=== PATIENT | male | born 1950 | race Caucasian/White ===

== ENCOUNTER 2020-12-01 20:18 | Emergency (ER) | payer OTHER ==
[~2020-12-01] VITALS: Ht 172.7 cm; Wt 61.2 kg
--- NOTE | ~2020-12-01 | EMS ---
[address] [address] EMS Patient Care Report Name: ADALID ARDON Room #: DEP JOSE CARLOS Mayo#: [id number] Admission: 12/01/20 Attend Phys: Discharge: 12/01/20 Date of : 48 Report #: [id number] THIS REPORT FOR: //name// Report Transmitted: 12/02/2020 07:43 EMS Care Summary [place], [place]/[facility] Incident [id number] @ 12/01/2020 19:37 Incident Location [address] [place], [place] [id number] Patient ADALID ARDON Male, 70 Years 1950 Patient Address Patient History Hypotension, Patient Allergies No known allergies, Patient Medications Simvastatin, Chief Complaint HYPOTENSION Disposition Transported [place] Dispatch Reason Sick Person Transported To [place] [facility] Narrative M41 DISPATCHED TO A SICK PERSON. M41 AOS AND FOUND A MALE PT SITTING AT THE DINNER TABLE. THE PT WAS CAOX4 ANSWERING ALL QUESTIONS CORRECTLY. THE PT WAS OVER AT A FRIENDS HOUSE EATING DINNER WHEN HE LOST CONSCIOUSNESS FOR ABOUT 5 MINUTES. INDIVIDUALS ON SCENE STATE THAT HE DID NOT HAVE ANY SEIZURE ACTIVITY AND THAT HE JUST PASSED OUT AND [address] [address] EMS Patient Care Report Name: ADALID ARDON Room #: DEP AlecLizzie#: [id number] Admission: 12/01/20 Attend Phys: Discharge: 12/01/20 Date of : 48 Report #: [id number] THEY WERE UNABLE TO AROUSE HIM. THE PT STATES THAT HE DOES HAVE HX OF HYPOTENSION AND NOTHING ELSE. PT DENIES ALLERGIES AND TAKES SIMVASTATIN. THE PT STATES THAT HE DOES NOT WISH TO RECIEVE ANY TREATMENT BUT DOES ALLOW US TO TAKE HIS VITAL SIGNS. PTS VITALS OBTAINED WHICH SHOWED THE PT WAS HYPOTENSIVE. THE PT IS STILL REFUSING TREATMENT EVEN AFTER I TOLD HIM ALL THINGS POSSIBLE LEADING UP TO AND HE STILL REFUSED. I CALLED [facility]ICAL CONTR[facility] AND ADVISED THEM OF THE SITUATION AND THEY STATED THAT THEY BELIEVE THAT WITH HIS CURRENT BLOOD PRESSURE EVEN THOUGH HE IS AOX4 THAT HE IS NOT CAPABLE OF MAKING SOUND DECISIONS AND THAT THE PT SHOULD BE TRANSPORTED TO [facility]. THE PT AT THIS TIME PASSED OUT RIGHT AFTER I RECIEVED REPORT FROM LILIANA. THE PT WAS MOVED TO THE COT. IN THE AMBULANCE VITALS OBTAINED. IV ACCESS OBTAINED. PT GIVEN 500ML NS IV. PT BP IMPROVED. M[address] [facility]. EN ROUTE PT CONDTION IMPROVED. REPORT GIVEN TO RN [facility]. SIGNATURES OBTAINED. TRANSFER OF CARE TOOK PLACE. M41 IN SERVICE. CURTIS BONILLA DIRECT[employer] Initial Vitals @20:09P: 40, @20:07P: 51,SpO2: 93, @19:58P: 49,SpO2: 96, @19:58P: 55,CO: 1,SpO2: 97, @20:11P: 58,BP: 81/55,SpO2: 97, @20:13P: 61, @20:10P: 57,BP: 87/50,CO: 1,SpO2: 98, @19:48P: 60,BP: 55/41,SpO2: 91, @19:46P: 71,R: 18,BP: 66/35,Pain: 0/10,GCS: 15,Glucose: 111,SpO2: 99,Revised Trauma: 10, @20:15P: 65,R: 18,BP: 100/66,GCS: 15,SpO2: 98,Revised Trauma: 12,HI Suspected: false Assessments @19:46MENTAL:Person Oriented,Time Oriented,Event Oriented,Place Oriented,SKIN:Diaphoresis,Cold,Pale,HEENT:Head/Face: No [facility] [address] [place] [address] EMS Patient Care Report Name: ADALID ARDON Shari Room #: DEP Maria Esther#: [id number] Admission: 12/01/20 Attend Phys: Discharge: 12/01/20 Date of : 48 Report #: [id number] Abnormalities,Neck/Airway: No Abnormalities,LUNG SOUNDS:General: No Abnormalities,ABDOMEN:General: No Abnormalities,PELVIS//GI:No Abnormalities,EXTREMITIES:Capillary Refill: Right Upper: < 2 Sec,Left Arm: No Abnormalities,Right Arm: No Abnormalities,Left Leg: No Abnormalities,Right Leg: No Abnormalities,PULSE:Radial: 1+ Thready,NEURO:No Abnormalities,@20:15MENTAL:Person Oriented,Time Oriented,Place Oriented,Event Oriented,SKIN:HEENT:Head/Face: No Abnormalities,Neck/Airway: No Abnormalities,LUNG SOUNDS:General: No Abnormalities,ABDOMEN:General: No Abnormalities,PELVIS//GI:No Abnormalities,EXTREMITIES:Capillary Refill: Right Upper: < 2 Sec,Left Arm: No Abnormalities,Right Arm: No Abnormalities,Left Leg: No Abnormalities,Right Leg: No Abnormalities,PULSE:Radial: 1+ Thready,NEURO:No Abnormalities, Impression Hypotension Procedures @19:46ALS AssessmentResponse: UnchangedSucceeded@20:05Saline Lock 8cc (18 ga) Site: Antecubital-LeftResponse: UnchangedSucceeded@20:07Normal Saline (.9% NaCl) 500cc (18 ga) Site: Antecubital-LeftResponse: ImprovedSucceeded@19:503-Lead ECGResponse: UnchangedSucceeded Timeline 19:35,Call Received 19:35,Dispatch Notified 19:37,Dispatched 19:37,En Route 19:45,On Scene 19:46,At Patient 19:46,ALS Assessment,Response: UnchangedSucceeded, 19:46,BP: 66/35 M,PULSE: 71,RR: 18 R,SPO2: 99 Ox,ETCO2: ,B,PAIN: 0,GCS: 15, 19:48,BP: 55/41 M,PULSE: 60,RR: R,SPO2: 91 Ox,ETCO2: ,BG: ,PAIN: ,GCS: , 19:50,3-Lead ECG,Response: UnchangedSucceeded, 19:58,BP: / M,PULSE: 55,RR: R,SPO2: 97 Ox,ETCO2: ,BG: ,PAIN: ,GCS: , 19:58,BP: / M,PULSE: 49,RR: R,SPO2: 96 Ox,ETCO2: ,BG: ,PAIN: ,GCS: , 20:05,Saline Lock 8cc 18 ga Site: Antecubital-Left,Response: UnchangedSucceeded, 20:07,BP: / M,PULSE: 51,RR: R,SPO2: 93 Ox,ETCO2: ,BG: ,PAIN: ,GCS: , 20:07,Normal Saline (.9% NaCl) 500cc 18 ga Site: Antecubital-Left,Response: ImprovedSucceeded, 20:09,BP: / M,PULSE: 40,RR: R,SPO2: Ox,ETCO2: ,BG: ,PAIN: ,GCS: , 20:09,Depart Scene 20:10,BP: 87/50 M,PULSE: 57,RR: R,SPO2: 98 Ox,ETCO2: ,BG: ,PAIN: ,GCS: , 20:11,BP: 81/55 M,PULSE: 58,RR: R,SPO2: 97 Ox,ETCO2: ,BG: ,PAIN: ,GCS: , 20:13,BP: / M,PULSE: 61,RR: R,SPO2: Ox,ETCO2: ,BG: ,PAIN: ,GCS: , 20:15,BP: 100/66 M,PULSE: 65,RR: 18 R,SPO2: 98 Ox,ETCO2: ,BG: ,PAIN: ,GCS: 15, [address] [address] EMS Patient Care Report Name: ADALID ARDON Shari Room #: DEP Maria Esther#: [id number] Admission: 12/01/20 Attend Phys: Discharge: 12/01/20 Date of : [birth year] Report #: [id number] 20:16,At Destination 20:47,Call Closed Disclaimer v1.1 Copyright 2020 [employer] This EMS Care Summary contains data elements from the applicable legal record (which may be displayed differently). It is designed to provide pertinent information for the following purposes: continuity of care, clinical quality, and state data reporting. The complete legal record is available to ED staff and administrators of the receiving hospital in [employer] Patient Tracker. All data is provided "as is."
[2020-12-01 21:16] LABS: BASOPHILS 0.7 % (0.0-2.0); EOSINOPHILS 2.5 % (0.0-3.0); HEMATOCRIT 40.7 % (42.0-52.0); HEMOGLOBIN 13.6 gm/dL (14.0-18.0); LYMPHOCYTES 29.7 % (24.0-44.0); MCH 29.9 pg (26.0-34.0); MCHC 33.4 g/dL (28.0-37.0); MCV 89.3 fL (80.0-100.0); MONOCYTES 4.6 % (1.0-8.0); PLATELET COUNT 285 thou/uL (150-400); POLYS 62.5 % (36.0-66.0); RBC 4.56 mil/uL (4.50-6.00); RDW 14.3 % (10.5-14.5); WBC 6.3 thou/uL (4.0-11.0)
[2020-12-01 21:24] LABS: CALCIUM 8.1 mg/dL (8.5-10.1); CREATININE 1.3 mg/dL (0.7-1.3); MAGNESIUM 2.1 mg/dL (1.8-2.4); POTASSIUM 3.7 mmol/L (3.5-5.1)
[2020-12-01 22:01] VITALS: BP 134/59
--- NOTE | 2020-12-02 07:21 | EKG ---
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
--- NOTE | 2020-12-02 13:50 | EKG ---
[address] [address] ELECTROCARDIOGRAM REPORT Name: REVAADALID Shari Room #: [facility]P [facility] [id number] Admission: 12/01/20 Attend Phys: Discharge: 12/01/20 Date of : 48 Report #: [id number] [facility] ED Test Date: 2020-12-01 Test Time: 19:57:37 Pat Name: ADALID ARDON Department: Room: Gender: M Relationship Specialist: unknown : 1950 Requested By: Aaron Zaidi Order Number: [id number] MD: Cam He Measurements Intervals [place] Rate: 120 P: 39 NE: 130 QRS: -22 QRSD: 116 T: 146 QT: 344 QTc: 486 Interpretive Statements Sinus tachycardia LBBB No previous ECG available for comparison Electronically Signed On 12-02-2020 13:50:31 CDT by Cam He [email or web address] <ELECTRONICALLY SIGNED> By: Cam He MD, [facility] 12/02/20 1350 56 56 Cam He MD, FACC /EPI
== END 2020-12-01 22:02 | disposition left against medical advice (07) ==
LOC: ER 20:18
PROVIDERS: Emergency Medicine
DX: R55 Syncope and collapse (principal); I10 Essential (primary) hypertension; F17.210 Nicotine dependence, cigarettes, uncomplicated; Z90.89 Acquired absence of other organs; Z85.828 Personal history of other malignant neoplasm of skin